=== PATIENT | male | born 1975 | race American Indian/Alaskan Native ===

== ENCOUNTER 2018-08-21 21:00 | Emergency (ER) | payer SELFPAY ==
[2018-08-21] MEDS ORDERED: NORCO 5/325 PO ONE (23:19)
[2018-08-21] MEDS ORDERED: BOOSTRIX IM ONE (23:19)
[2018-08-21] MEDS ORDERED: XYLOCAINE 1% MPF 5 mL INFILTRATI ONE (23:20)
--- NOTE | 2018-08-22 01:30 | Emergency Department Report ---
- General Chief Complaint: Wound/Laceration Stated Complaint: RT LEG LAC Time Seen by Provider: 08/21/18 23:19 Source: patient Mode of arrival: Ambulatory Limitations: No Limitations - History of Present Illness Initial Comments: pt is a 42 y/o aam who presents for laceration 6 cm right LE versus stove cover bleeding controlled by direct pressure there is no numbness no tingling pt remains ambulatory rom intact , pt remains ambulatory to baseline per patient. Onset/Timin -: hour(s) Extremity Location: Right: Lower Leg Place: work Patient Tetanus UTD: No Context: accidental Associated Symptoms: none - Related Data Previous Rx's Medication Instructions Recorded Last Taken Type cephALEXin [Keflex] 500 mg PO Q8HR 10 Days #30 cap 08/22/18 Unknown Rx traMADol [Ultram] 50 mg PO Q6HR PRN #12 tablet 08/22/18 Unknown Rx Allergies Allergy/AdvReac Type Severity Reaction Status Date / Time No Known Allergies Allergy Unverified 08/21/18 21:13 ED Review of Systems ROS: Stated complaint: RT LEG LAC Other details as noted in HPI Constitutional: denies: chills, fever Eyes: as per HPI ENT: denies: ear pain, throat pain Respiratory: denies: cough, shortness of breath, wheezing Cardiovascular: denies: chest pain, palpitations Endocrine: no symptoms reported Gastrointestinal: denies: abdominal pain, nausea, diarrhea Genitourinary: denies: urgency, dysuria Musculoskeletal: other (RLE laceration 6 cm ). denies: back pain, joint swelling, arthralgia Skin: denies: rash, lesions Neurological: denies: headache, weakness, paresthesias Psychiatric: denies: anxiety, depression Hematological/Lymphatic: denies: easy bleeding, easy bruising ED Past Medical Hx - Past Medical History Previous Medical History?: No - Surgical History Past Surgical History?: No - Social History Smoking Status: Current Every Day Smoker Substance Use Type: None - Medications Home Medications: Home Medications Medication Instructions Recorded Confirmed Last Taken Type cephALEXin [Keflex] 500 mg PO Q8HR 10 Days #30 cap 08/22/18 Unknown Rx traMADol [Ultram] 50 mg PO Q6HR PRN #12 tablet 08/22/18 Unknown Rx ED Physical Exam - General Limitations: No Limitations General appearance: alert, in no apparent distress - Head Head exam: Present: atraumatic, normocephalic - Eye Eye exam: Present: normal appearance, PERRL, EOMI Pupils: Present: normal accommodation - ENT ENT exam: Present: mucous membranes moist, TM's normal bilaterally, normal external ear exam. Absent: normal orophraynx - Neck Neck exam: Present: normal inspection, full ROM. Absent: tenderness, lymphadenopathy, thyromegaly - Respiratory Respiratory exam: Present: normal lung sounds bilaterally. Absent: respiratory distress, wheezes, stridor, chest wall tenderness - Cardiovascular Cardiovascular Exam: Present: regular rate, normal rhythm, normal heart sounds. Absent: systolic murmur, diastolic murmur, rubs, gallop - GI/Abdominal GI/Abdominal exam: Present: soft, normal bowel sounds - Rectal Rectal exam: Present: deferred - Extremities Exam Extremities exam: Present: normal inspection, normal capillary refill. Absent: tenderness, calf tenderness - Back Exam Back exam: Present: normal inspection, full ROM. Absent: tenderness, CVA tenderness (R), CVA tenderness (L), muscle spasm, rash noted - Neurological Exam Neurological exam: Present: alert, oriented X3, CN II-XII intact, normal gait, reflexes normal - Psychiatric Psychiatric exam: Present: normal affect, normal mood - Skin Skin exam: Present: warm, dry, intact, normal color. Absent: rash ED Course Vital Signs 08/21/18 21:11 Temperature 98.5 F Pulse Rate 67 Respiratory 18 Rate Blood Pressure 118/74 O2 Sat by Pulse 99 Oximetry - Laceration /Wound Repair Right Lower Leg Wound Location: upper extremity Wound Length (cm): 6 Wound's Depth, Shape: superficial, linear Wound Explored: clean Irrigated w/ Saline (ccs): 60 Betadine Prep?: Yes Anesthesia: 1% Lidocaine Volume Anesthetic (ccs): 5 Wound Repaired With: sutures Suture Size/Type: 3:0, proline Number of Sutures: 17 Layer Closure?: No Deep Layer Suture Size/Type: 3:0 Number Deep Layer Sutures: 3 (3 mattress sutures ) Sterile Dressing Applied?: Yes Progress: RLE laceration 6cm , all bleeding controlled, rom intact no nerve, muscle, or tendon damage, distal pulses inact, wound cleaned with betadine solution, anesthesia with 1% LIDOCAINE X 5 CC WOUND Irrigated with 60 sterile saline, wound closed with 3.0 prolene. 3 mattress sutures and 17 running sutures, edges well approximated, all bleeding is controlled , sterile dressing applied, pt given discharge instructions verbalized agreement and understanding of same. ED Medical Decision Making - Medical Decision Making RLE lacaeration, see procedure note pt tolerated procedure with minimal distre ss, pt given wound care instructions verbalized agreement and understanding of same. [y will be discharged to home in stable condition at this time. Critical care attestation.: If time is entered above; I have spent that time in minutes in the direct care of this critically ill patient, excluding procedure time. ED Disposition Clinical Impression: Laceration of lower leg Qualifiers: Encounter type: initial encounter Laterality: right Qualified Code(s): S81.811A - Laceration without foreign body, right lower leg, initial encounter Disposition: TO HOME OR SELFCARE Is pt being admited?: No Does the pt Need Aspirin: No Condition: Stable Instructions: Laceration (ED), Suture Care (ED) Prescriptions: cephALEXin [Keflex] 500 mg PO Q8HR 10 Days #30 cap traMADol [Ultram] 50 mg PO Q6HR PRN #12 tablet PRN Reason: Pain Referrals: [facility] [Outside] - 3-5 Days Forms: Work/School Release Form(ED) Time of Disposition: 01:46
[2018-08-22] MEDS ORDERED: NORCO 5/325 ONE (01:31)
[2018-08-22] MEDS ORDERED: BOOSTRIX IM ONE (01:32)
[2018-08-22 01:57] VITALS: BP 99/56
== END 2018-08-22 01:56 | disposition home or self-care (01) ==
LOC: ED 21:00
DX: S81.811A Laceration without foreign body, right lower leg, initial encounter (principal); F17.200 Nicotine dependence, unspecified, uncomplicated; W26.8XXA Contact with other sharp object(s), not elsewhere classified, initial encounter; Y93.89 Activity, other specified; Y92.89 Other specified places as the place of occurrence of the external cause; Y99.8 Other external cause status
CPT/HCPCS: 90471; 90715; 99282

== ENCOUNTER 2018-10-23 20:43 | Emergency (ER) | payer SELFPAY ==
[2018-10-23] MEDS ORDERED: XYLOCAINE 1% 20 mL INFILTRATI ONE (21:03)
[2018-10-23 21:06] VITALS: BP 119/80
--- NOTE | 2018-10-23 21:09 | Emergency Department Report ---
HPI - General Chief Complaint: Laceration/Recheck/Suture Time Seen by Provider: 10/23/18 20:53 - HPI HPI: 42-year-old -[place] male presents to the emergency department with a laceration to his right wrist and right palm that occurred when he punched through some glass. The patient was allegedly fleeing from the police but was apprehended. The bleeding was controlled with a pressure dressing. He otherwise denies any past medical history. He last had his tetanus vaccination updated one month ago. He is right-hand dominant. ED Past Medical Hx - Past Medical History Previous Medical History?: No - Surgical History Past Surgical History?: No - Social History Smoking Status: Current Every Day Smoker Substance Use Type: Alcohol, Other - Medications Home Medications: Home Medications Medication Instructions Recorded Confirmed Last Taken Type cephALEXin [Keflex] 500 mg PO Q8HR 10 Days #30 cap 08/22/18 Unknown Rx traMADol [Ultram] 50 mg PO Q6HR PRN #12 tablet 08/22/18 Unknown Rx Sulfamethoxazole/Trimethoprim 1 each PO BID #14 tablet 10/23/18 Unknown Rx [Bactrim DS TAB] ED Review of Systems ROS: Stated complaint: LACERATION TO RT WRIST Other details as noted in HPI Comment: All other systems reviewed and negative Constitutional: denies: chills, fever Musculoskeletal: arthralgia. denies: joint swelling Skin: other (lacerations). denies: rash Neurological: denies: numbness, paresthesias Physical Exam - Physical Exam Vital Signs: Vital Signs 10/23/18 21:03 Temperature 98.6 F Pulse Rate 72 Respiratory 18 Rate Blood Pressure 119/80 [Right] O2 Sat by Pulse 100 Oximetry Physical Exam: GENERAL: The patient is well-developed well-nourished. HENT: Normocephalic. Atraumatic. Patient has moist mucous membranes. EYES: Extraocular motions are intact. NECK: Supple. Trachea is midline. CHEST/LUNGS: Clear to auscultation. There is no respiratory distress noted. HEART/CARDIOVASCULAR: Regular. There is no tachycardia. There is no murmur. ABDOMEN: Abdomen is soft, nontender. Patient has normal bowel sounds. There is no abdominal distention. SKIN: Patient has multiple lacerations to the right hand and wrist. There is a 3 cm linear superficial volar wrist laceration. There is a semicircular flap laceration to the proximal right palm at the thenar eminence that is about 3 cm in total length. There is a superficial linear laceration to the ulnar side of the right proximal palm that is about 2 cm in length. There are small linear lacerations to the dorsal third and fourth fingers at the PIP joint that are small flaps and superficial. No foreign bodies seen in any of the lacerations. There is a small 2 cm linear superficial laceration to the distal right palm on the radial side, just below the index and middle fingers. NEURO: The patient is awake, alert, and oriented. The patient is cooperative. The patient has no focal neurologic deficits. The patient has normal speech. MUSCULOSKELETAL: There is some tenderness to palpation to the right wrist and right hand with the patient has multiple lacerations. Radial pulses +2 over 4 and capillary refill less than 2 seconds to the affected right fingers, hand and wrist. There is no limitation range of motion. ED Course Vital Signs 10/23/18 21:03 Temperature 98.6 F Pulse Rate 72 Respiratory 18 Rate Blood Pressure 119/80 [Right] O2 Sat by Pulse 100 Oximetry - Laceration /Wound Repair Right Hand Wound Location: upper extremity (right proximal palm / thenar eminence) Wound Length (cm): 3 Wound's Depth, Shape: superficial, flap Wound Explored: no foreign body removed Irrigated w/ Saline (ccs): 50 Anesthesia: 1% Lidocaine Volume Anesthetic (ccs): 2 Wound Repaired With: sutures Suture Size/Type: 5:0 Number of Sutures: 6 Layer Closure?: No Sterile Dressing Applied?: No Progress: There was also another palmar hand laceration, 2 cm, to the ulnar side of the hand. Linear, superficial. No foreign body. Washed with 50 cc Saline. 3 simple interrupted sutures placed with 5.0 prolene. Right Wrist Wound Location: upper extremity (right volar wrist) Wound Length (cm): 3 Wound's Depth, Shape: superficial, linear Irrigated w/ Saline (ccs): 50 Anesthesia: 1% Lidocaine Volume Anesthetic (ccs): 2 Wound Repaired With: sutures Suture Size/Type: 5:0, proline Number of Sutures: 7 (1 horizontal mattress, 6 simple interrupted) Sterile Dressing Applied?: No Right Finger Wound Location: upper extremity (right dorsal 4th finger) Irrigated w/ Saline (ccs): 50 Suture Size/Type: 5:0, proline Number of Sutures: 2 Sterile Dressing Applied?: Yes ED Medical Decision Making - Radiology Data Radiology results: image reviewed interpreted by me: X-ray of the right wrist, which also appears to include the hand, does not show any signs of any radiopaque foreign body such as glass. - Medical Decision Making This patient was brought in by the police after he was apprehended and was found to have multiple lacerations to the right hand and wrist when he punched through some glass. He is up-to-date with his tetanus from one month ago. As previously mentioned, he has one wrist laceration, 3 palmar hand lacerations and 2 small lacerations to the dorsal third and fourth fingers at the PIP joints. These areas were sutured and approximated well. X-rays were previously done that did not show any radiopaque foreign body or glass. The patient was placed in a splint to limit his movement and limit the tension on the sutures as many of these lacerations are in high tension areas or near joints. Vital signs stable. His ED course. He has been placed on some antibiotics. He understands that the sutures will need to be removed in 7 days but that he should be seen immediately upon any signs or symptoms of infection. - Differential Diagnosis laceration, abrasion, retained foreign body, vascular injury Critical Care Time: No Critical care attestation.: If time is entered above; I have spent that time in minutes in the direct care of this critically ill patient, excluding procedure time. ED Disposition Clinical Impression: Multiple lacerations Laceration of wrist Qualifiers: Encounter type: initial encounter Laterality: right Qualified Code(s): S61.511A - Laceration without foreign body of right wrist, initial encounter Laceration of hand Qualifiers: Encounter type: initial encounter Foreign body presence: without foreign body Laterality: right Qualified Code(s): S61.411A - Laceration without foreign body of right hand, initial encounter Disposition: DC-01 TO HOME OR SELFCARE Is pt being admited?: No Condition: Stable Instructions: Suture Care (ED), Laceration (ED) Additional Instructions: Please follow up with a primary care physician as soon as you able to do so. The sutures will need to be removed in 7 days and can be done so at the [facility], and a primary care facility, urgent care, or back in the emergency department. The areas should be cleaned with soap and water and then be kept dry but do not scrub. I would use the splint for the next few days to avoid moving the hand and wrist to much and causing increased tension on the sutures. Please make sure you are seen immediately with any signs or symptoms of infection such as increased swelling, increased redness, increased pain, development of fever, or discharge of pus. Take the antibiotics as prescribed. Prescriptions: Sulfamethoxazole/Trimethoprim [Bactrim DS TAB] 1 each PO BID #14 tablet Referrals: [facility] [Outside] - [facility] Time of Disposition: 22:15
--- NOTE | 2018-10-23 21:19 | XRay Report ---
RIGHT WRIST 4 VIEWS INDICATION: wrist and hand laceration, retained glass. COMPARISON: No relevant prior imaging study available. FINDINGS: No fracture or dislocation is seen. Carpal alignment is within normal limits. No radiodense foreign bodies are seen. There is mild volar soft tissue swelling with small amount of soft tissue gas tracking along the volar wrist into the distal forearm. There is also soft tissue gas in the pulmonary hand at the level of the distal index and long metacarpals. IMPRESSION: 1. No radiodense foreign bodies. Laceration injury. Signer Name: Darek Squires MD Signed: 10/23/2018 9:15 PM Workstation Name: [id number]
[2018-10-23] MEDS ORDERED: NACL 0.9% 500 ML IR ONE (21:27)
[2018-10-23] MEDS ORDERED: BACTRIM DS PO ONE (21:59)
== END 2018-10-23 23:39 | disposition home or self-care (01) ==
LOC: ED 20:43
DX: S61.511A Laceration without foreign body of right wrist, initial encounter (principal); S61.411A Laceration without foreign body of right hand, initial encounter; F17.200 Nicotine dependence, unspecified, uncomplicated; W25.XXXA Contact with sharp glass, initial encounter; Y93.89 Activity, other specified; Y92.89 Other specified places as the place of occurrence of the external cause; Y99.8 Other external cause status